=== PATIENT | female | born 1980 ===

== ENCOUNTER → 2018-01-20 | Day surgery (SDC) | payer SELFPAY ==
[~2018-01-20] VITALS: Ht 167.6 cm; Wt 100.7 kg
[~2018-01-20] MED LIST: BACTRIM DS TAB1 EACH PO; HAIR, SKIN & N1 EACH PO; IRON325 M3 PO; MIRENA1 EACH; MULTIPLE VITAM1 EAC1 PO; VITAMIN D1000 UNIT PO; VITAMIN D250000 UNIT PO
--- NOTE | 2018-01-20 18:33 | Operative Report ---
Operative/Inv Procedure Report Surgery Date: 01/20/18 Name of Procedure: Abdominoplasty liposuction trunk thighs fat transfer to buttock Pre-Operative Diagnosis: Lipodystrophy Post-Operative Diagnosis: Same Estimated Blood Loss: scant (350) Surgeon/Instrument Assembly Supervisor: Blaze Rosa MD Anesthesia: general endotracheal tube Operative/Procedure Note Note: The patient had been counseled extensively regards to the procedure the alternatives the risks and expected outcomes as relates to her request for surgical intervention to treat excess skin and fat of the anterior abdominal wall the abdominal wall laxity as well as asymmetry of the buttocks and low back. Patient has requested a complete abdominoplasty with liposuction of the lower back and lateral thighs with fat transfer to the buttock. Patient was given a SPS informed consents which she has returned sign and she has no questions regarding them this morning during an additional conversation. Patient understands she will need further back surgery in the future due to excess sagging skin of the upper back and possibly buttock. She is not pursuing that now due to financial concerns. The patient was marked in the standing position for the fat transfer and liposuction of the trunk and thighs. She was marked in the standing position for an abdominoplasty with the use of a ruler. She signed informed consent. She was taken to the operating room placed supine on the table. Venodyne boots were placed. Gen. anesthesia was established intravenous antibiotics given and the abdomen was prepped and draped in usual sterile fashion. The lower incision was deepened on the ink fraser in the abdominal wall flap was developed after circumscribing the umbilicus. A tunnel was dissected up to the xiphoid MG 2 layer abdominal wall plication was carried out. The patient was put in semi-thousand 3 layer closure was carried out over drains and the umbilicus was brought out with a 3 layer closure as well. The patient was then transferred into the prone position. She was put in the jackknife position and appropriately padded. The back was prepped and draped in usual sterile fashion. Tumescent technique was used to liposuction the outer hips and upper buttock as well as the low back. Of note liposuction was carried out of the abdominal wall flap after it was removed. After liposuction was completed the fat was allowed to decant and was injected 750 mL into each buttock. Incisions were closed in layers and abdominal binder was placed.
== END ==
LOC: STS 01:11
DX: Z41.1 Encounter for cosmetic surgery (principal); E65 Localized adiposity; Z98.84 Bariatric surgery status
CPT/HCPCS: 81025; 87086; J0131; J0171; J0690; J2250; J2405; Q9968